=== PATIENT | female | born 1980 | race Caucasian/White ===

== ENCOUNTER 2017-10-15 09:46 | Emergency (ER) | payer MEDICARE, MEDICAID ==
[~2017-10-15] VITALS: Ht 165.1 cm; Wt 126.3 kg
[~2017-10-15 09:46] MED LIST: ALPR-475 PO; OMEP-110 PO; ONDA4TAB7 PO; SERT50TA PO
[2017-10-15] MEDS ORDERED: ESCI10TA10 PO (09:57)
[2017-10-15] MEDS ORDERED: ONDANSETRON 2MG/ML, 2ML ONE (10:25)
[2017-10-15] MEDS ORDERED: MAALOX/HYOSCYAMINE/LIDOCAINE 45 ML BTL ONE (10:25)
[2017-10-15] MEDS ORDERED: ONDANSETRON 2MG/ML, 2ML IVPush ONE (10:30)
[2017-10-15] MEDS ORDERED: MAALOX/HYOSCYAMINE/LIDOCAINE 45 ML BTL PO ONE (10:30)
[2017-10-15] MEDS ORDERED: SODIUM CHLORIDE 0.9% 1,000ML IVBOLUS ONE (10:30)
[2017-10-15] MEDS ORDERED: SODIUM CHLORIDE FLUSH 10ML SYR IVF ONE (10:30)
[2017-10-15 10:34] LABS: MICROSCOPIC INDICATED
[2017-10-15 10:35] LABS: BASOPHILS # (AUTO) 0.12 x10^3/uL (0-0.1); BASOPHILS % (AUTO) 1 % (0-1); EOSINOPHILS % (AUTO) 2 % (1-7); LYMPHOCYTES # (AUTO) 2.54 x10^3/uL (1-3.4); LYMPHOCYTES % (AUTO) 22 % (22-44); MD NO; MEAN CORPUSCULAR HEMOGLOBIN 26.8 pg (27.0-34.8); MEAN CORPUSCULAR HGB CONC 33.7 g/dL (32.4-35.8); MEAN CORPUSCULAR VOLUME 79.7 fL (80-100); MONOCYTES # (AUTO) 0.47 x10^3/uL (0.2-0.8); MONOCYTES % (AUTO) 4 % (2-9); NEUTROPHILS # (AUTO) 8.01 x10^3/uL (1.8-6.8); NEUTROPHILS % (AUTO) 71 % (42-75); PLATELET COUNT 424 x10^3/uL (130-400); RED BLOOD COUNT 5.32 x10^6/uL (3.82-5.3); RED CELL DISTRIBUTION WIDTH 13.6 % (9.6-15.2)
[2017-10-15 10:41] LABS: INTERNATIONAL NORMALIZED RATIO 1.02 (0.93-1.1); PROTHROMBIN TIME 10.6 Seconds (9.6-11.5)
[2017-10-15 10:46] LABS: ALBUMIN 3.7 g/dL (3.4-5.0); ANION GAP 10 mmol/L (5-15); CALCIUM 8.9 mg/dL (8.5-10.1); CHLORIDE 106 mmol/L (98-107)
[2017-10-15 10:47] LABS: CULTURE INDICATED? YES
[2017-10-15 10:51] LABS: ALANINE AMINOTRANSFERASE 16 U/L (12-78); ALKALINE PHOSPHATASE 125 U/L (45-117); BILIRUBIN,TOTAL 0.7 mg/dL (0.2-1.0); CREATININE 1.02 mg/dL (0.55-1.02); TOTAL PROTEIN 8.4 g/dL (6.4-8.2)
[2017-10-15 11:51] VITALS: BP 105/47
== END 2017-10-15 12:27 | disposition home or self-care (01) ==
LOC: ED 10:20
DX: K29.00 Acute gastritis without bleeding (principal); Z90.710 Acquired absence of both cervix and uterus
CPT/HCPCS: 36415; 80053; 81001; 83690; 85025; 85610; 87086; 96374; 99284; J2405; J7030

== ENCOUNTER 2018-04-06 07:59 | Emergency (ER) | payer MEDICARE, MEDICAID ==
[~2018-04-06] VITALS: Ht 165.1 cm; Wt 118.8 kg
[~2018-04-06 07:59] MED LIST changes: +ESCI10TA10 PO
[2018-04-06] MEDS ORDERED: DIPH,PERTUSS(ACELL),TET VAC/PF 0.5 ML IM-VACC ONE ×2 (08:58→09:00)
[2018-04-06] MEDS ORDERED: SODIUM CHLORIDE FLUSH 10ML SYR IVF ONE (09:30)
[2018-04-06] MEDS ORDERED: AMPICILLIN/SULBACTAM 3 GM in SODIUM CHLORIDE 0.9% 100 ML IVPB ONE (09:30)
[2018-04-06] MEDS ORDERED: BACITRACIN ZINC OINT 500U/GM, 0.9 GM ONE (09:39)
[2018-04-06 10:19] VITALS: BP 136/81
== END 2018-04-06 10:24 | disposition home or self-care (01) ==
LOC: ED 09:50
DX: S61.451A Open bite of right hand, initial encounter (principal); L03.113 Cellulitis of right upper limb; W54.0XXA Bitten by dog, initial encounter; Y93.89 Activity, other specified; Y92.89 Other specified places as the place of occurrence of the external cause; Y99.8 Other external cause status
CPT/HCPCS: 73130; 90471; 90715; 96365; 99284; J0295

== ENCOUNTER 2019-08-14 10:26 | Emergency (ER) | payer MEDICARE, MEDICAID ==
[~2019-08-14] VITALS: Ht 165.1 cm; Wt 134.8 kg
[~2019-08-14 10:26] MED LIST changes: -ALPR-475 PO; +ALPR0.5T7 PO
[2019-08-14] MEDS ORDERED: KETOROLAC 30 MG/1 ML IM ONE (11:00)
[2019-08-14] MEDS ORDERED: ONDANSETRON ODT 4 MG PO ONE (11:00)
[2019-08-14] MEDS ORDERED: ONDANSETRON ODT 4 MG ONE (11:07)
[2019-08-14] MEDS ORDERED: KETOROLAC 60 MG/2 ML ONE (11:08)
--- NOTE | 2019-08-14 11:53 | NUR ---
RECEIVED REPORT FROM [place] RODRIG[facility]. ASSUMING CARE AT THIS TIME.
[2019-08-14 12:01] VITALS: BP 130/67
--- NOTE | 2019-08-14 12:02 | NUR ---
Patient/Caregiver given discharge instructions and they have confirmed that they understand the instructions. Patient ambulatory with steady gait.
== END 2019-08-14 12:03 | disposition home or self-care (01) ==
LOC: ED 11:27
DX: G43.011 Migraine without aura, intractable, with status migrainosus (principal); F32.9 Major depressive disorder, single episode, unspecified; F41.9 Anxiety disorder, unspecified
CPT/HCPCS: 70450; 96372; 99284; J1885; Q0162

== ENCOUNTER 2020-07-25 08:17 | Emergency (ER) | payer MEDICARE, MEDICAID ==
[~2020-07-25] VITALS: Ht 167.6 cm; Wt 141.0 kg
[2020-07-25 08:20] VITALS: BP 141/66
[2020-07-25 08:59] LABS: BASOPHILS % (AUTO) 1 % (0-1); EOSINOPHILS % (AUTO) 2 % (1-7); LYMPHOCYTES % (AUTO) 28 % (22-44); MEAN CORPUSCULAR HEMOGLOBIN 26.8 pg (27.0-34.8); MEAN CORPUSCULAR HGB CONC 33.1 g/dL (32.4-35.8); MEAN PLATELET VOLUME 7.5 fL (7.4-10.4); MONOCYTES % (AUTO) 5 % (2-9); NEUTROPHILS % (AUTO) 65 % (42-75); PLATELET COUNT 366 x10^3/uL (130-400); RED BLOOD COUNT 5.08 x10^6/uL (3.82-5.3); RED CELL DISTRIBUTION WIDTH 14.4 % (9.6-15.2)
[2020-07-25 09:00] LABS: MD NO
--- NOTE | 2020-07-25 09:09 | NUR ---
PT C/O PAIN ON RIGHT SIDE X 10 DAYS. PT DENIES TRAUMA. PT STATES IT STARTED BURNING IN THE ST[place], THAT HAS SINCE RESOLVED. PAIN DESCRIBED PRESSURE. PT STATES SHE MAY BE CONSTIPATED. PT HX OF GASTRITIS AND IBS. PAIN 7/10 WITH PAIN SHOOTING UP HER RIGHT SIDE.
[2020-07-25 09:10] LABS: ALANINE AMINOTRANSFERASE 18 U/L (12-78); ALBUMIN 3.6 g/dL (3.4-5.0); ANION GAP 7 mmol/L (5-15); CALCIUM 9.3 mg/dL (8.5-10.1); CHLORIDE 107 mmol/L (98-107); CREATININE 0.97 mg/dL (0.55-1.02)
[2020-07-25 09:15] LABS: ALKALINE PHOSPHATASE 133 U/L (45-117); BILIRUBIN,TOTAL 0.4 mg/dL (0.2-1.0); TOTAL PROTEIN 8.2 g/dL (6.4-8.2)
--- NOTE | 2020-07-25 09:16 | NUR ---
PT COMPLAING OF BACK PAIN UNDER HER RIGHT SHOULDER.
[2020-07-25 09:22] LABS: MICROSCOPIC AUTO
--- NOTE | 2020-07-25 10:32 | NUR ---
PT REC'VD DISCHARGE INSTRUCTIONS AND EDUCATION. PT HAD NO FURTHER QUESTIONS. PT AMBULATED TO DISCHARGE AREA, STEADY GAIT.
== END 2020-07-25 10:34 | disposition home or self-care (01) ==
LOC: ED 09:27
DX: S29.012A Strain of muscle and tendon of back wall of thorax, initial encounter (principal); R00.0 Tachycardia, unspecified; Z90.710 Acquired absence of both cervix and uterus; Z90.49 Acquired absence of other specified parts of digestive tract; X58.XXXA Exposure to other specified factors, initial encounter; Y93.89 Activity, other specified; Y92.89 Other specified places as the place of occurrence of the external cause; Y99.8 Other external cause status
CPT/HCPCS: 36415; 71045; 80053; 81001; 83690; 84703; 85025; 87086; 99284

== ENCOUNTER → 2021-06-23 | Outpatient (CLI) | payer MEDICARE, MEDICAID ==
[~2021-06-23] MED LIST changes: +ALPR0.25 PO; +DULO30CA2 PO; +FAMO-79 PO
== END | disposition home or self-care (01) ==
LOC: STAR 10:41
PROVIDERS: ATTEND Internal Medicine Gastroenterology
DX: Z01.812 Encounter for preprocedural laboratory examination (principal); Z20.822 Contact with and (suspected) exposure to COVID-19; K21.9 Gastro-esophageal reflux disease without esophagitis; Z68.43 Body mass index [BMI] 50.0-59.9, adult; Z80.0 Family history of malignant neoplasm of digestive organs
CPT/HCPCS: 36415; 87635